=== PATIENT | male | born 1950 | race Caucasian/White ===

== ENCOUNTER 2017-12-30 13:51 | Observation (INO) | payer OTHER ==
--- NOTE | 2017-12-30 14:03 | PDOC ---
History of Present Illness - General Stated Complaint: CHEST PAINS History Source: Patient, Family () - History of Present Illness Initial Comments: The patient is a 67M with a PMH of HTN, HLD, and T2DM who presents with approx 45 days of intermittent, non-radiating, chest pressure with associated R arm numbness and tingling. The denies any other associated symptoms. The patient states that the pain will occur with activity or at rest, will last for approximately several hours at a time, nothing makes it better, and he has tried antacids and OTC pain medication. The patient denies history of VT, reports a cardiac cath at [facility] 3y ago that was 'normal'. Patient denies fevers/chills, SZYMANSKI, blurry vision, N/V/D/C, abdominal pain, or extremity swelling. The patient's Licensed Optical Dispenser is Dr. Wagner 12/30/17 14:40 Past History - Past Medical History Allergies/Adverse Reactions: Allergies Allergy/AdvReac Type Severity Reaction Status Date / Time No Known Drug Allergies Allergy Verified 12/30/17 14:12 Home Medications: Ambulatory Orders Aspirin Coated [Ecotrin -] 81 mg PO DAILY 03/19/13 Linagliptin/Metformin HCl [Jentadueto 2.5 mg-850 mg Tab] 1 each PO BID 12/30/17 Anemia: No Asthma: No Cancer: No Cardiac Disorders: No CVA: No COPD: No CHF: No Dementia: No Diabetes: Yes GI Disorders: No Disorders: No HTN: Yes Hypercholesterolemia: Yes Liver Disease: No Seizures: No Thyroid Disease: No - Surgical History Abdominal Surgery: Yes (suprapubic cath 01.21.12, THEN REMOVED) Appendectomy: No Cardiac Surgery: No Cholecystectomy: No Lung Surgery: No Neurologic Surgery: No Orthopedic Surgery: Yes (RIGHT TKR 2010) - Suicide/Smoking/Psychosocial Hx Smoking Status: No Smoking History: Never smoked Have you smoked in the past 12 months: No Number of Cigarettes Smoked Daily: 0 Hx Alcohol Use: No Drug/Substance Use Hx: No Substance Use Type: None Hx Substance Use Treatment: No Review of Systems - Review of Systems Able to Perform ROS?: Yes Comments:: GENERAL/CONSTITUTIONAL: No fever or chills. No weakness HEAD, EYES, EARS, NOSE AND THROAT: No change in vision. No ear pain or discharge. No sore throat CARDIOVASCULAR: per HPI RESPIRATORY: No SOB, cough, wheezing, or hemoptysis GASTROINTESTINAL: No nausea, vomiting, diarrhea or constipation GENITOURINARY: No dysuria, frequency, or change in urination MUSCULOSKELETAL: +Chronic back pain SKIN: No rash NEUROLOGIC: No headache, loss of consciousness HEMATOLOGIC/LYMPHATIC: No anemia, easy bleeding, or history of blood clots ALLERGIC/IMMUNOLOGIC: No hives or skin allergy 12/30/17 14:47 *Physical Exam - Vital Signs Vital Signs Temp Pulse Resp BP Pulse Ox 98.2 F 67 18 129/66 97 12/31/17 09:09 12/31/17 09:09 12/31/17 09:09 12/31/17 09:09 12/31/17 06:00 - Physical Exam Comments: GENERAL: Awake, alert, and fully oriented, in no acute distress HEAD: No signs of trauma, normocephalic, atraumatic EYES: PERRL, EOMI, sclera anicteric, conjunctiva clear ENT: Hearing grossly normal, nares patent, oropharynx clear without exudates. Moist mucosa NECK: Normal ROM, supple LUNGS: No distress, speaks full sentences, clear to auscultation bilaterally HEART: Regular rate and rhythm, normal S1 and S2, no murmurs appreciated, peripheral pulses normal and equal bilaterally ABDOMEN: Soft, protuberant, nontender, normoactive bowel sounds. No guarding, no rebound. No masses EXTREMITIES : Normal inspection, Normal range of motion, no edema. No clubbing or cyanosis NEUROLOGICAL: Cranial nerves II through XII grossly intact. Normal speech, no focal sensorimotor deficits SKIN: Warm, Dry, normal turgor, no rashes or lesions noted 12/30/17 14:48 ED Treatment Course - LABORATORY CBC & Chemistry Diagram: 12/30/17 15:00 12/30/17 15:00 Medical Decision Making - Medical Decision Making Patient is a 67M with a hx of HTN, HLD, and T2DM who presents with 45d of intermittent chest pain associated with R arm paresthesia ED Course CMP, CBC, Cardiac Profile ECG, CXR Consulted Cardiology to evaluate patient for need of Stress Test vs ECHO 12/30/17 14:48 No leukocytosis 12/30/17 15:22 Trop I neg ECG with sinus rhythm, rate 77, partial R bundle noted, UA not concerning for UTI 12/30/17 15:43 Per Cardiology, plan for admit to obs for r/o ACS 12/30/17 16:05 *DC/Admit/Observation/Transfer Diagnosis at time of Disposition: ACS (acute coronary syndrome) Diabetes mellitus Qualifiers: Diabetes mellitus type: type 2 Diabetes mellitus ferry terminal agent insulin use: without ferry terminal agent use Diabetes mellitus complication status: with unspecified complications Qualified Code(s): E11.8 - Type 2 diabetes mellitus with unspecified complications - Discharge Dispostion Disposition: HOME Condition at time of disposition: Good Decision to Admit order: Yes - Referrals - Patient Instructions - Post Discharge Activity
[2017-12-30 14:15] VITALS: BMI 36.8
--- NOTE | 2017-12-30 14:35 | PDOC ---
Attending Attestation - HPI HPI: Patient is a 67 year old male with PMHx of diabetes, hypertension, hyperlipidemia, who presents with pressure-like chest pain for 45 days. Patient reports intermittent left-sided pressure-like chest pain for 45 days. He states that it is not associated with any particular activity. He also reports associated right arm numbness and tingling. He was referred here by his manager assurance Dr. Wagner. He states that he takes Metformin, aspirin, and is not on any other blood thinners. He denies h/o VA. Had a cardiac catheterization 3 years ago at [facility] which came out normal. Denies any SOB, diaphoresis, blurry vision, headache, or abdominal pain. - Physicial Exam PE: GENERAL: Awake, alert, and fully oriented, in no acute distress HEAD: No signs of trauma EYES: PERRLA, EOMI, sclera anicteric, conjunctiva clear ENT: Auricles normal inspection, hearing grossly normal, nares patent, oropharynx clear without exudates. Moist mucosa NECK: Normal ROM, supple, no lymphadenopathy, JVD, or masses LUNGS: Breath sounds equal, clear to auscultation bilaterally. No wheezes, and no crackles HEART: Regular rate and rhythm, normal S1 and S2, no murmurs, rubs or gallops ABDOMEN: Soft, nontender, normoactive bowel sounds. No guarding, no rebound. No masses EXTREMITIES: Normal range of motion, no edema. No clubbing or cyanosis. No cords, erythema, or tenderness NEUROLOGICAL: Cranial nerves II through XII grossly intact. Normal speech, normal gait SKIN: Warm, Dry, normal turgor, no rashes or lesions noted. <Albania Alvarado - Last Filed: 12/30/17 15:14> - Resident Resident Name: Efrain Pleitez - ED Attending Attestation I have performed the following: I have examined & evaluated the patient, The case was reviewed & discussed with the resident, I agree w/resident's findings & plan, Exceptions are as noted - Medical Decision Making 12/30/17 14:56 A portion of this note was written by my scribe, under my supervision. Vital Signs Temp Pulse Resp BP Pulse Ox 98.5 F 80 18 131/76 96 12/30/17 14:12 12/30/17 14:12 12/30/17 14:12 12/30/17 14:12 12/30/17 14:12 67 year old male patient with pmh of HTN, DM, HLD presents with 45 days of chest pain. States not always exertional. Occasional SOB, and R arm tingling but not always associated with chest comfort. Last cath 3 years ago at [facility] reportedly negative. Pt initially resisted going to ER until pt's family convinced pt to call the manager assurance's office. Pt sees Dr. Wagner as an outpatient. Was unable to get an appointment until January 18, so came to ED. Pt's history is somewhat atypical for ACS, but the patient has significant risk factors. Dr. Byers consulted and she will see patient. Labs including troponin. Give aspirin. Dispo per cardiology. 12/30/17 16:00 CBC, BMP 12/30/17 15:00 12/30/17 15:00 CMP Sodium 140 mmol/L (136-145) 12/30/17 15:00 Potassium 3.9 mmol/L (3.5-5.1) 12/30/17 15:00 Chloride 107 mmol/L (98-107) 12/30/17 15:00 Carbon Dioxide 26 mmol/L (21-32) 12/30/17 15:00 Anion Gap 7 MMOL/L (8-16) L 12/30/17 15:00 BUN 13 mg/dL (7-18) 12/30/17 15:00 Creatinine 0.9 mg/dL (0.7-1.3) 12/30/17 15:00 Creat Clearance w eGFR > 60 (>60) 12/30/17 15:00 Random Glucose 111 mg/dL (74-106) H 12/30/17 15:00 Calcium 8.7 mg/dL (8.5-10.1) 12/30/17 15:00 Total Bilirubin 0.5 mg/dL (0.2-1.0) 12/30/17 15:00 AST 43 U/L (15-37) H D 12/30/17 15:00 ALT 58 U/L (12-78) D 12/30/17 15:00 Alkaline Phosphatase 78 U/L (45-117) 12/30/17 15:00 Creatine Kinase 153 IU/L (39-308) 12/30/17 15:00 Troponin I < 0.02 ng/ml (0.00-0.05) 12/30/17 15:00 Total Protein 7.5 g/dl (6.4-8.2) 12/30/17 15:00 Albumin 3.4 g/dl (3.4-5.0) 12/30/17 15:00 Troponin is negative. <Ashish Whitney - Last Filed: 12/30/17 16:00> Heart Score/ECG Review #1 ECG reviewed & interpreted by me at: 14:00 12/30/17 14:35 NSR 77 with 1st degree AV block, incomplete RBBB, no std/waleska, QTC 450 msec, t wave flat III <Ashish Whitney - Last Filed: 12/30/17 16:00>
[2017-12-30 15:20] LABS: HEMATOCRIT 41.7 % (35.4-49); HEMOGLOBIN 14.4 GM/dL (11.7-16.9); MCH 31.2 pg (25.7-33.7); MCHC 34.5 g/dl (32.0-35.9); MEAN CELL VOLUME 90.7 fl (80-96); PLATELET COUNT 137 K/MM3 (134-434); RDW 14.1 % (11.9-15.9); WHITE BLOOD COUNT 7.4 K/mm3 (4.0-10.0)
--- NOTE | 2017-12-30 15:22 | CON.CARD ---
Consult Consult Specialty:: Cardiology Referred by:: Chelo Reason for Consultation:: chest pain - History of Present Illness Chief Complaint: chset pain History of Present Illness: 67M h/o HTN, HLD, DM p/w 45 days of intermittent CP and right arm numbness. Not exertional. Sees Dr. Wagner in clinic, last seen 07/2017. h/o L/RHC nonobstructive CAD, echo unremarkable 04/2017. Has had ongoing complaints of chest pain. He says this time is different because it's worse, has almost constant but level of pain goes up and down under left armpit, also has sometimes L arm pain, right arm pain, right arm numbness. not exertional, has dyspnea on exertion that has been stable. Trop neg x 1, EKG unremarkable - History Source History Provided By: Patient Limitations to Obtaining History: No Limitations - Past Medical History Cardio/Vascular: Yes: HTN, Hyperlipdemia Endocrine: Yes: Diabetes Mellitus - Alcohol/Substance Use Hx Alcohol Use: No - Smoking History Smoking history: Never smoked Have you smoked in the past 12 months: No Aproximately how many cigarettes per day: 0 Home Medications - Allergies Allergies/Adverse Reactions: Allergies Allergy/AdvReac Type Severity Reaction Status Date / Time No Known Drug Allergies Allergy Verified 12/30/17 14:12 - Home Medications Home Medications: Ambulatory Orders Aspirin Coated [Ecotrin -] 81 mg PO DAILY 03/19/13 Review of Systems - Review of Systems Constitutional: reports: No Symptoms Eyes: reports: No Symptoms HENT: reports: No Symptoms Neck: reports: No Symptoms Cardiovascular: reports: Chest Pain Respiratory: reports: SOB on Exertion Gastrointestinal: reports: No Symptoms Genitourinary: reports: No Symptoms Musculoskeletal: reports: Extremity Pain Integumentary: reports: No Symptoms Neurological: reports: Numbness Endocrine: reports: No Symptoms Hematology/Lymphatic: reports: No Symptoms Psychiatric: reports: No Symptoms Vital Signs: Vital Signs Temperature 98.5 F 12/30/17 14:12 Pulse Rate 80 12/30/17 14:12 Respiratory Rate 18 12/30/17 14:12 Blood Pressure 131/76 12/30/17 14:12 O2 Sat by Pulse Oximetry (%) 96 12/30/17 14:12 Constitutional: Yes: Well Nourished, No Distress, Calm Eyes: Yes: Conjunctiva Clear, EOM Intact HENT: Yes: Atraumatic, Normocephalic Neck: Yes: Supple Respiratory: Yes: Regular, CTA Bilaterally Gastrointestinal: Yes: Normal Bowel Sounds, Soft Cardiovascular: Yes: Regular Rate and Rhythm Heart Sounds: Yes: S1, S2 Edema: No Peripheral Pulses: 2+ Left Doralis Pedis, 2+ Right Dorsalis Pedis Integumentary: Yes: WNL Neurological: Yes: Alert, Oriented ...Motor Strength: WNL Psychiatric: Yes: Alert, Oriented Assessment/Plan L/RHC [facility] 08/2015 wedge 15, PA , RA 10, CI 2.9, <30% RCA, mild dz D1 and OM1 , nl EF Mibi 09/2014 7:15 min, no STs, no ischemia, nl EF, nl LVE/TID Echo 04/2017 nl LV functino, EF 60-65%, nl LAP, RV nl size and function, ao root mildly dilated 3.9 cm carotids 09/2016 small nonobstructive plaque EKG sinus rhythm, first deg AVB, IRBBB Chest pain - unremarkable echo recently, cath unremarkable 2015 - not exertional, history not typical of angina - EKG unremarkable, trop neg x 1, less consistent with ACS - history more concerning for musculoskeletal chest pain - rule out RI, trend trop, EKG given risk factors DM - per primary team, not on meds HLD - was on statin prior, reportedly held for abnormal LFTs HTN - BP controlled here, not on meds
[2017-12-30 15:31] LABS: URINE APPEARANCE CLEAR; URINE BILIRUBIN NEGATIVE (<2.0 mg/dL); URINE COLOR YELLOW; URINE GLUCOSE (UA) NEGATIVE (NEGATIVE); URINE KETONE NEGATIVE (NEGATIVE); URINE LEUK ESTERASE NEGATIVE (NEGATIVE); URINE NITRITE NEGATIVE (NEGATIVE); URINE PROTEIN NEGATIVE (NEGATIVE); URINE UROBILINOGEN NEGATIVE mg/dL (0.2-1.0)
[2017-12-30 15:32] LABS: ALBUMIN 3.4 g/dl (3.4-5.0); ANION GAP 7 MMOL/L (8-16); BLOOD UREA NITROGEN 13 mg/dL (7-18); CALCIUM 8.7 mg/dL (8.5-10.1); CHLORIDE 107 mmol/L (98-107); CO2 26 mmol/L (21-32); CREATININE 0.9 mg/dL (0.7-1.3); GLUCOSE,RANDOM 111 mg/dL (74-106); POTASSIUM 3.9 mmol/L (3.5-5.1); SGOT/AST 43 U/L (15-37); SGPT/ALT 58 U/L (12-78); SODIUM 140 mmol/L (136-145)
[2017-12-30 15:36] LABS: ALK PHOS 78 U/L (45-117); BILIRUBIN,TOTAL 0.5 mg/dL (0.2-1.0); TOT PROT 7.5 g/dl (6.4-8.2)
--- NOTE | 2017-12-30 17:26 | HP ---
PCP: Nathan Nogueira CHIEF COMPLAINT: Chest pain HISTORY OF PRESENT ILLNESS: This is a 67 year old man who comes to the ED complaining of chest pain. He is a poor historian. He says he has been experiencing chest pain for the last 45 days. He says the pain has been worse for the last 2 weeks. The pain is located across his lower left chest, and sometimes he has pain in his right arm with it. It comes and goes with each episode lasting a minute to several minutes. It is not worse with activity or inspiration. He denies palpitations, SOB, dizziness, nausea. He sees Dr. Wagner in the office and says he had a normal cardiac catheterization several years ago. PAST MEDICAL HISTORY Hypertension Hyperlipidemia Type 2 diabetes mellitus PAST SURGICAL HISTORY Right total knee replacement Social History: Smoking: Former smoker Alcohol: None Drugs: Denies Recent Travel: No Family History: Unremarkable Allergies No Known Drug Allergies Allergy (Verified 12/30/17 14:12) Home Medications Medication Instructions Recorded Aspirin Coated [Ecotrin -] 81 mg PO DAILY 03/19/13 REVIEW OF SYSTEMS CONSTITUTIONAL: Absent: fever, chills, diaphoresis, generalized weakness, malaise, loss of appetite, weight change HEENT: Absent: rhinorrhea, nasal congestion, throat pain, throat swelling, difficulty swallowing, mouth swelling, ear pain, eye pain, visual changes CARDIOVASCULAR: Present: chest pain. Absent: syncope, palpitations, lightheadedness, peripheral edema RESPIRATORY: Absent: cough, shortness of breath, dyspnea with exertion, orthopnea, wheezing, stridor, hemoptysis GASTROINTESTINAL: Absent: abdominal pain, abdominal distension, nausea, vomiting , diarrhea, constipation, melena, hematochezia GENITOURINARY: Absent: dysuria, frequency, urgency, hesitancy, hematuria, flank pain MUSCULOSKELETAL: Absent: myalgia, arthralgia, joint swelling, back pain, neck pain SKIN: Absent: rash, itching, pallor HEMATOLOGIC/IMMUNOLOGIC: Absent: easy bleeding, easy bruising, lymphadenopathy, frequent infections ENDOCRINE: Absent: unexplained weight gain, unexplained weight loss, heat intolerance, cold intolerance NEUROLOGIC: Absent: headache, focal weakness,r paresthesias, dizziness, unsteady gait, seizure, mental status changes, bladder or bowel incontinence PSYCHIATRIC: Absent: anxiety, depression, suicidal or homicidal ideation, hallucinations. PHYSICAL EXAMINATION Vital Signs - 24 hr 12/30/17 12/30/17 12/30/17 14:12 16:31 16:33 Temperature 98.5 F Pulse Rate 80 Pulse Rate [ 69 Left] Respiratory 18 18 18 Rate Blood Pressure 131/76 Blood Pressure 115/73 [Left Arm] O2 Sat by Pulse 96 97 97 Oximetry (%) GENERAL: Awake, alert, and fully oriented, in no acute distress. HEAD: Normal with no signs of trauma. EYES: Pupils equal, round and reactive to light, extraocular movements intact, sclerae anicteric, conjunctivae clear. EARS, NOSE, THROAT: Ears normal, nares patent, oropharynx clear without exudates. Moist mucous membranes. NECK: Normal range of motion, supple without lymphadenopathy, JVD, or masses. LUNGS: Breath sounds equal, clear to auscultation bilaterally. No wheezes, and no crackles. No accessory muscle use. HEART: Regular rate and rhythm, normal S1 and S2 without murmur, rub or gallop. ABDOMEN: Obese, soft, nontender, not distended, normoactive bowel sounds, no guarding, no rebound, no masses. No hepatomegaly or splenomegaly. MUSCULOSKELETAL: Normal range of motion at all joints. No bony deformities or tenderness. No CVA tenderness. UPPER EXTREMITIES: 2+ pulses, warm, well-perfused. No cyanosis. No clubbing. No peripheral edema. LOWER EXTREMITIES: 2+ pulses, warm, well-perfused. No calf tenderness. No peripheral edema. NEUROLOGICAL: Cranial nerves II-XII intact. Normal speech. Gait not observed. PSYCHIATRIC: Cooperative. Good eye contact. Appropriate mood and affect. SKIN: Warm, dry, normal turgor, no rashes or lesions noted, normal capillary refill. Laboratory Results - last 24 hr 12/30/17 12/30/17 12/30/17 15:00 15:00 15:15 WBC 7.4 RBC 4.60 Hgb 14.4 Hct 41.7 MCV 90.7 MCH 31.2 MCHC 34.5 RDW 14.1 Plt Count 137 MPV 10.0 Sodium 140 Potassium 3.9 Chloride 107 Carbon Dioxide 26 Anion Gap 7 L BUN 13 Creatinine 0.9 Creat Clearance w eGFR > 60 Random Glucose 111 H Calcium 8.7 Total Bilirubin 0.5 AST 43 H D ALT 58 D Alkaline Phosphatase 78 Creatine Kinase 153 Creatine Kinase Index 0.9 CK-MB (CK-2) 1.41 Troponin I < 0.02 Total Protein 7.5 Albumin 3.4 Urine Color Yellow Urine Appearance Clear Urine pH 5.0 Ur Specific [place] 1.021 Urine Protein Negative Urine Glucose (UA) Negative Urine Ketones Negative Urine Blood Negative Urine Nitrite Negative Urine Bilirubin Negative Urine Urobilinogen Negative Ur Leukocyte Esterase Negative ASSESSMENT/PLAN: This is a 67 year old man with a history of HTN, hyperlipidemia, type 2 DM who presented to the ED with intermittent chest pain for the last 45 days. 1. Atypical chest pain - Observe on telemetry - Continue aspirin - Serial troponins - Cardiology consult appreciated 2. HTN - On no medications 3. Hyperlipidemia - On no medications - statin previously caused abnormal LFTs 4. Type 2 DM - Continue Linagliptin, Metformin - Fingersticks with Novolog sliding scale 5. Obesity with BMI 36.8 Visit type - Emergency Visit Emergency Visit: Yes Care time: The patient presented to the Emergency Department on the above date and was hospitalized for further evaluation of their emergent condition. - New Patient This patient is new to me today: Yes Date on this admission: 12/30/17 - Critical Care Critical Care patient: No Hospitalist Screening - Colonoscopy Questionnaire Colonoscopy Questionnaire: Colonoscopy Questionnaire - Patient: 50 - 75 years old and never had a screening colonoscopy: No History of colon or rectal polyps, or CA: No History of IBD, Crohn's disease or UC: No History of abdominal radiation therapy as a child: No - Relative: 1 with colon or rectal CA, or polyps at age 60 or younger: No Colon or rectal CA diagnosed at age 45 or younger: No Multiple relatives with colon or rectal CA: No - Outcome: Screening Result: Negative Screen
[2017-12-30] MEDS ORDERED: ACETAMINOPHEN 325 MG TABLET (FP) PO PRN (17:27)
[2017-12-30] MEDS ORDERED: PATIENT'S OWN MEDICATION (NON-FORMULARY) (Linagliptin/Metformin Hcl [Jentadueto 2.5 Mg-850 PO SCH (22:00)
[2017-12-30] MEDS: INSULIN SLIDING SCALE (NOVOLOG) 1 VIAL SQ SCH (23:32)
[2017-12-31] MEDS: INSULIN SLIDING SCALE (NOVOLOG) 1 VIAL SQ SCH (06:42)
[2017-12-31] MEDS ORDERED: sitaGLIPtin PHOSPHATE 100 MG TABLET (FP) PO SCH (07:00)
[2017-12-31 09:11] VITALS: BP 129/66; PULSE 67; TEMP 98.2
[2017-12-31] MEDS ORDERED: ASPIRIN COATED 81 MG TABLET.EC PO SCH (10:00)
--- NOTE | 2017-12-31 10:59 | PN ---
Progress Note (short form) - Note Progress Note: cc: chest pain s: mild stable chest pain on left side and arm pain right. palps, dizzy, lighteaded, sob. tele: no events, sinus o Current Medications Acetaminophen (Tylenol -) 650 mg PO Q4H PRN PRN Reason: PAIN Last Admin: 12/30/17 23:25 Dose: 650 mg Aspirin (Ecotrin -) 81 mg PO DAILY [facility] Insulin Aspart (Novolog Vial Sliding Scale -) 1 vial SQ ACHS [facility]; Protocol Last Admin: 12/31/17 06:42 Dose: Not Given Metformin HCl (Glucophage -) 850 mg PO BIDAC [facility] Last Admin: 12/31/17 06:41 Dose: 850 mg Sitagliptin Phosphate (Januvia -) 100 mg PO DAILY@0700 [facility] Last Admin: 12/31/17 06:41 Dose: 100 mg Vital Signs Period Temp Pulse Resp BP Sys/Shepherd Pulse Ox Last 24 Hr 97.4 F-98.5 F 64-80 16-18 109-136/55-79 96-98 Constitutional: Yes: Well Nourished, No Distress, Calm Eyes: Yes: Conjunctiva Clear, EOM Intact HENT: Yes: Atraumatic, Normocephalic Neck: Yes: Supple Respiratory: Yes: Regular, CTA Bilaterally Gastrointestinal: Yes: Normal Bowel Sounds, Soft Cardiovascular: Yes: Regular Rate and Rhythm Heart Sounds: Yes: S1, S2 Edema: No Peripheral Pulses: 2+ Left Doralis Pedis, 2+ Right Dorsalis Pedis Integumentary: Yes: WNL Neurological: Yes: Alert, Oriented ...Motor Strength: WNL Psychiatric: Yes: Alert, Oriented Assessment/Plan L/[facility] [place] 08/[place] wedge 15, PA 28/15, RA 10, CI 2.9, <30% RCA, mild dz D1 and OM1 , nl EF Mibi 09/2014 7:15 min, no STs, no ischemia, nl EF, nl LVE/TID Echo 04/2017 nl LV functino, EF 60-65%, nl LAP, RV nl size and function, ao root mildly dilated 3.9 cm carotids 09/2016 small nonobstructive plaque EKG sinus rhythm, first deg AVB, IRBBB Chest pain, atypical - unremarkable echo recently, cath unremarkable 2015 - not exertional, history not typical of angina - EKG unremarkable, trop neg x 2, less consistent with ACS - history more concerning for musculoskeletal chest pain - no further cardiac workup as inpatient DM - per primary team, not on meds HLD - was on statin prior, reportedly held for abnormal LFTs HTN - BP controlled here, not on meds
--- NOTE | 2017-12-31 13:58 | DS ---
Physical Examination Vital Signs: Vital Signs Temperature 98.2 F 12/31/17 09:09 Pulse Rate 67 12/31/17 09:09 Respiratory Rate 18 12/31/17 09:09 Blood Pressure 129/66 12/31/17 09:09 O2 Sat by Pulse Oximetry (%) 97 12/31/17 06:00 Findings/Remarks: General: NAD, A&Ox3 Lungs: CTA bilaterally Heart: RRR, S1S2 Abd: Soft, non-tender, non-distended. Normoactive bowel sounds Ext: Warm, well-perfused Labs: CBC, BMP 12/30/17 15:00 12/30/17 15:00 Discharge Summary Reason For Visit: DIABETES MELLITUS; ACUTE CORONARY SYNDROME Hospital Course: This is a 67 year old man with a history of HTN, hyperlipidemia, type 2 DM who presented to the ED with intermittent chest pain for the last 45 days. 1. Atypical chest pain - Recent ECHO unremarkable per cardiology - Trop x3 negative - EKG reviewed - Per cards, no further workup as an inpatient 2. HTN - Not on home mediations 3. Hyperlipidemia - Was on statin prior, but held due to abnormal LFTs 4. Type 2 DM - Continue Jentadueto Condition: Good - Instructions Diet, Activity, Other Instructions: Please return to the ED with new, persistent, or worsening symptoms. Please follow-up with providers as indicated. Referrals: Nathan Nogueira MD [Primary Care Provider] - 1 Week Ella Byers MD [Staff Physician] - (Please follow-up with cardiology within 1- 2 week for further outpatient management. ) Disposition: HOME - Home Medications Comprehensive Discharge Medication List: Ambulatory Orders Aspirin Coated [Ecotrin -] 81 mg PO DAILY 03/19/13 Linagliptin/Metformin HCl [Jentadueto 2.5 mg-850 mg Tab] 1 each PO BID 12/30/17 This patient is new to me today: Yes Date on this admission: 12/31/17 Emergency Visit: Yes ED Registration Date: 12/30/17 Care time: The patient presented to the Emergency Department on the above date and was hospitalized for further evaluation of their emergent condition. Critical Care patient: No - Discharge Referral Referred to [facility] Med P.C.: No
--- NOTE | 2018-01-01 22:03 | EKG ---
Test Reason : Blood Pressure : / mmHG Vent. Rate : 077 BPM Atrial Rate : 077 BPM P-R Int : 210 ms QRS Dur : 100 ms QT Int : 398 ms P-R-T Axes : 043 -16 023 degrees QTc Int : 450 ms SINUS RHYTHM WITH 1ST DEGREE A-V BLOCK POSSIBLE LEFT ATRIAL ENLARGEMENT INCOMPLETE RIGHT BUNDLE BRANCH BLOCK BORDERLINE ECG WHEN COMPARED WITH ECG OF 11-JAN-2012 14:15, NO SIGNIFICANT CHANGE WAS FOUND Confirmed by JOSSE ARNOLD MD ([id number]) on 01/01/2018 10:02:41 PM Referred By: Confirmed By:JOSSE ARNOLD MD
== END 2017-12-31 14:39 | disposition home or self-care (01) ==
LOC: JER 13:51 → JERBED 16:01 → J4W 23:01
PROVIDERS: ADMIT Internal Medicine; ATTEND Registered Nurse
DX: R07.89 Other chest pain (principal); I10 Essential (primary) hypertension; E78.5 Hyperlipidemia, unspecified; E11.8 Type 2 diabetes mellitus with unspecified complications; Z96.651 Presence of right artificial knee joint; Z79.84 Long term (current) use of oral hypoglycemic drugs; Z79.82 Long term (current) use of aspirin; Z87.891 Personal history of nicotine dependence; E66.9 Obesity, unspecified; Z68.36 Body mass index [BMI] 36.0-36.9, adult
CPT/HCPCS: 36415; 71045-TC-FY; 80053; 81003; 82550; 82553; 82962; 84484; 85027; 93005; 93010; 99285-25; G0378

== ENCOUNTER 2018-10-09 07:40 | Day surgery (SDC) | payer OTHER | END 2018-10-09 15:30 | disposition home or self-care (01) | LOC: JASU-SURG 07:40 ==

== ENCOUNTER 2019-01-13 21:59 | Emergency (ER) | payer OTHER ==
[2019-01-13 22:09] VITALS: TEMP 98.1; BMI 35.2
[2019-01-14] MEDS ORDERED: morphine CARPU-JECT 2 MG/1 ML DISP.SYRIN IVPUSH ONE (01:30)
[2019-01-14] MEDS ORDERED: CLINDAMYCIN 600MG PREMIX IVPB 600 MG/50 ML BAG IVPB ONE ×2 (01:30→01:43)
[2019-01-14] MEDS ORDERED: MORPHINE SULFATE 2 MG/ML VIAL ONE (01:43)
--- NOTE | 2019-01-14 01:56 | PDOC ---
Documentation entered by Marium Pastor SCRIBE, acting as scribe for Nora Hansen MD. Nora Hansen MD: This documentation has been prepared by the Dawit amor Adrianna, SCRIBE, under my direction and personally reviewed by me in its entirety. I confirm that the documentation accurately reflects all work, treatment, procedures, and medical decision making performed by me. History of Present Illness - General Chief Complaint: Bite Stated Complaint: RT FOOT PAIN/CAT BITE X 2 WKS Time Seen by Provider: 01/14/19 00:43 - History of Present Illness Initial Comments: The patient is a 67M with a PMH of HTN, HLD, and DM, who presents to the ED for evaluation of right heel pain for 2 weeks. Patient notes he was bitten by a stray cat and the distal medial aspect of his RLE 2 weeks ago, and developed right heel pain 2 days after. Patient notes he has been cleaning and disinfecting the bite himself, but the pain persists. He describes the pain as constant and sharp-shooting. Patient notes the pain is exacerbated with prolonged standing and walking. He denies any relief when taking meloxicam. Patient is unsure of when his last tetanus was. He endorses a headache while in the ED. Denies fever, chills, chest pain, SOB, nausea, vomit, diarrhea, constipation, urinary symptoms, or abdominal pain. Allergies: NKA, NKDA Surgical History: suprapubic cath insertion and removal, right TKR Social History: Denies EtOH, tobacco, or illicit drug use PCP: Dr. Nogueira Past History - Past Medical History Allergies/Adverse Reactions: Allergies Allergy/AdvReac Type Severity Reaction Status Date / Time No Known Drug Allergies Allergy Verified 01/13/19 22:09 Home Medications: Ambulatory Orders Linagliptin/Metformin HCl [Jentadueto 2.5 mg-850 mg Tab] 1 each PO BID 12/30/17 Cholesterol 1 gm MC DAILY 10/06/18 Icosapent Ethyl [Vascepa] 1 gm PO DAILY 10/06/18 Vitamin E 400 unit PO DAILY 10/06/18 Clindamycin [Cleocin -] 300 mg PO Q6HPO #28 capsule 01/14/19 Anemia: No Asthma: No Cancer: No Cardiac Disorders: No CVA: No COPD: No CHF: No Dementia: No Diabetes: Yes GI Disorders: No Disorders: No HTN: Yes Hypercholesterolemia: Yes Liver Disease: No Seizures: No Thyroid Disease: No - Surgical History Abdominal Surgery: Yes (suprapubic cath 01.21.12, THEN REMOVED) Appendectomy: No Cardiac Surgery: No Cholecystectomy: No Lung Surgery: No Neurologic Surgery: No Orthopedic Surgery: Yes (RIGHT TKR 2010) - Suicide/Smoking/Psychosocial Hx Smoking Status: No Smoking History: Never smoked Have you smoked in the past 12 months: No Number of Cigarettes Smoked Daily: 0 Hx Alcohol Use: No Drug/Substance Use Hx: No Substance Use Type: None Hx Substance Use Treatment: No Review of Systems - Review of Systems Comments:: GENERAL/CONSTITUTIONAL: No fever or chills. No weakness. HEAD, EYES, EARS, NOSE AND THROAT: No change in vision. No ear pain or discharge. No sore throat. CARDIOVASCULAR: No chest pain or shortness of breath. RESPIRATORY: No cough, wheezing, or hemoptysis. GASTROINTESTINAL: No nausea, vomiting, diarrhea or constipation. GENITOURINARY: No dysuria, frequency, or change in urination. MUSCULOSKELETAL: +Right heel pain. No joint or muscle swelling. No neck or back pain. SKIN: No rash NEUROLOGIC: +Headache. No vertigo, loss of consciousness, or change in strength/ sensation. ENDOCRINE: No increased thirst. No abnormal weight change. HEMATOLOGIC/LYMPHATIC: No anemia, easy bleeding, or history of blood clots. ALLERGIC/IMMUNOLOGIC: No hives or skin allergy. *Physical Exam - Vital Signs Last Vital Signs Temp Pulse Resp BP Pulse Ox 98.1 F 98 H 18 131/71 99 01/13/19 22:06 01/13/19 22:06 01/13/19 22:06 01/13/19 22:06 01/13/19 22:06 - Physical Exam Comments: CONSTITUTIONAL: Well-appearing; well-nourished; in no apparent distress HEAD: Normocephalic; atraumatic EYES: PERRL; EOM intact ENMT: External appears normal; normal oropharynx NECK: Supple; non-tender; no cervical lymphadenopathy CARD: Normal S1, S2; no murmurs, rubs, or gallops RESP: Normal chest excursion with respiration; breath sounds clear and equal bilaterally; no wheezes, rhonchi, or rales ABD: Soft, non-distended; non-tender; no palpable organomegaly, no palpable hernias EXT: Normal ROM in all four extremities; non-tender to palpation; distal pulses intact SKIN: +Minimally increased warmth of the medial distal RLE. Warm, dry, no rash NEURO: No focal neurological deficiencies. ED Treatment Course - LABORATORY CBC & Chemistry Diagram: 01/14/19 01:20 01/14/19 01:20 Medical Decision Making - Medical Decision Making 01/14/19 21:59 No need for rabies shot, as the cat has been seen in and around the neighborhood for weeks, tho it is a stray. Pt also was biten over 10 days ago and the cat has been spotted recently by neighbors. Others in the neighborhood have been bitten by said cat. Pt is stable for discahrge home with oral abx. *DC/Admit/Observation/Transfer Diagnosis at time of Disposition: Infection - Discharge Dispostion Disposition: HOME Condition at time of disposition: Stable - Prescriptions Prescriptions: Clindamycin [Cleocin -] 300 mg PO Q6HPO #28 capsule - Referrals Referrals: Nathan Nogueira MD [Primary Care Provider] - - Patient Instructions - Post Discharge Activity
[2019-01-14 02:07] LABS: BASO % 0.8 % (0-2.0); EOS % 2.7 % (0-4.5); HEMATOCRIT 43.6 % (35.4-49); HEMOGLOBIN 14.7 GM/dL (11.7-16.9); LYMPH % 40.7 % (8-40); MCH 31.4 pg (25.7-33.7); MCHC 33.7 g/dl (32.0-35.9); MEAN CELL VOLUME 93.2 fl (80-96); MEAN PLT VOLUME 10.4 fl (7.5-11.1); MONO % 7.1 % (3.8-10.2); NEUT % 48.7 % (42.8-82.8); PLATELET COUNT 154 K/MM3 (134-434); RBC 4.68 M/mm3 (4.00-5.60); RDW 14.1 % (11.9-15.9); WHITE BLOOD COUNT 8.4 K/mm3 (4.0-10.0)
[2019-01-14 02:29] LABS: ALBUMIN 3.5 g/dl (3.4-5.0); BILIRUBIN,TOTAL 0.5 mg/dL (0.2-1); BLOOD UREA NITROGEN 10.1 mg/dL (7-18); CALCIUM 8.8 mg/dL (8.5-10.1); CREATININE 1.2 mg/dL (0.55-1.3); POTASSIUM 4.3 mmol/L (3.5-5.1); TOT PROT 7.7 g/dl (6.4-8.2)
[2019-01-14 03:46] VITALS: BP 135/75; PULSE 93
== END 2019-01-14 03:43 | disposition home or self-care (01) ==
LOC: JER 21:59 → JERFT 21:59 → JER 01-14 03:43
PROC: 3E03329 Introduction of Other Anti-infective into Peripheral Vein, Percutaneous Approach (ICD-10-PCS; principal; 2019-01-13)
PROC: 3E033NZ Introduction of Analgesics, Hypnotics, Sedatives into Peripheral Vein, Percutaneous Approach (ICD-10-PCS; 2019-01-13)
DX: M79.671 Pain in right foot (principal); I10 Essential (primary) hypertension; E78.00 Pure hypercholesterolemia, unspecified; E11.9 Type 2 diabetes mellitus without complications; Z79.84 Long term (current) use of oral hypoglycemic drugs; W55.01XA Bitten by cat, initial encounter
CPT/HCPCS: 36415; 80053; 85025; 85651; 86140; 96365; 96375; 99283-25

== ENCOUNTER 2020-03-09 09:33 | Emergency (ER) | payer OTHER ==
--- OUTSIDE RECORDS SUMMARY | 2020-03-09 09:37 | XMS ---
:1950 [facility] Providers Name Role Phone Ricardo Guzman Unavailable Unavailable Lufrano, Ricardo Unavailable Unavailable Lufrano, Ricardo Unavailable Unavailable Lufrano, Ricardo Unavailable Unavailable Lufrano, Ricardo Unavailable Unavailable Lufrano, Ricardo Unavailable Unavailable Lufrano, Ricardo Unavailable Unavailable Re-disclosure Warning The records that you are about to access may contain information from federally- assisted alcohol or drug abuse programs. If such information is present, then the following federally mandated warning applies: This information has been disclosed to you from records protected by federal confidentiality rules (42 CFR part 2). The federal rules prohibit you from making any further disclosure of this information unless further disclosure is expressly permitted by the written consent of the person to whom it pertains or as otherwise permitted by 42 CFR part 2. A general authorization for the release of medical or other information is NOT sufficient for this purpose. The Federal rules restrict any use of the information to criminally investigate or prosecute any alcohol or drug abuse patient.The records that you are about to access may contain highly sensitive health information, the redisclosure of which is protected by Article 27-F of the [place] State Public Health law. If you continue you may haveaccess to information: Regarding HIV / AIDS; Provided by facilities licensed or operated by the [facility] Office of Mental Health; or Provided by the [facility] Office for People With Developmental Disabilities. If such information is present, then the following [facility] mandated warning applies: This information has been disclosed to you from confidential records which are protected by state law. State law prohibits you from making any further disclosure of this information without the specific written consent of the person to whom it pertains, or as otherwise permitted by law. Any unauthorized further disclosure in violation of state law may result in a fine or custodial sentence or both. A general authorization for the release of medical or other information is NOT sufficient authorization for further disclosure. Encounters Encounter Providers Location Date Indications Data Source(s ) Attender: Ricardo 02/11/2020 [facility] ([facility] [place] 12:00:00 AM EDT Medical, ) Office Attender: Ricardo Guzman 02/11/2020 12:00:00 AM EDT [facility] [place] [place] Attender: Ricardo Guzman 11/19/2019 12:00:00 AM EDT [facility] [place] [place] Attender: Ricardo Guzman 11/05/2019 12:00:00 AM EDT [facility] [place] [place] Attender: Ricardo Guzman 11/05/2019 12:00:00 AM EDT [facility] [place] [place] Medications Medication Brand Start Product Dose Route Administrative Pharmacy [facility] Indications Reaction Description Data Name Date Form Instructions Instructions Source(s) Metoclopram REGLAN 11/04/ TABLET 90 complet REGL AN [facility] (St kendra 10 MG :2019 ed [facility] Oral Tablet 6 12:00: Medica l, [Reglan] 00 AM PC) REGLAN:2071 EDT 66 Metoclopram REGLAN 11/04/ TABLET 90 complet REGL AN [facility] (St kendra 10 MG :2019 ed [facility] Oral Tablet 6 12:00: Medica l, [Reglan] 00 AM PC) REGLAN:2071 EDT 66 Metoclopram REGLAN 11/04/ TABLET 90 complet REGL AN [facility] (St kendra 10 MG :2019 ed [facility] Oral Tablet 6 12:00: Medica l, [Reglan] 00 AM PC) REGLAN:2071 EDT 66 Milk MILK 10/14/ complet MILK THISTLE ME DGEN ( thistle 2019 ed [facility] extract E:2835 12:00: Medical, MILK 79 00 AM PC) THISTLE:283 EDT 579 Milk MILK 10/14/ complet MILK THISTLE ME DGEN (St thistle THISTL 2020 ed [facility] extract E:2835 12:00: Medical, MILK 79 00 AM PC) THISTLE:283 EDT 579 Linagliptin JENTAD 10/14/ complet JENTAD UETO [facility] (St 2.5 MG / UETO:1 2019 ed [facility] Metformin 501071 12:00: Medica l, hydrochlori 00 AM PC) de 850 MG EDT Oral Tablet [Jentadueto ] JENTADUETO: [id number] Tamsulosin TAMSUL 10/14/ complet TAMSULO SIN [facility] (St hydrochlori OSIN:8 2019 ed [facility] de 0.4 MG 30765 12:00: Medical , Oral 00 AM PC) Capsule EDT TAMSULOSIN: 805171 Tamsulosin TAMSUL 10/14/ complet TAMSULO SIN [facility] (St hydrochlori OSIN:8 2019 ed [facility] de 0.4 MG 63536 12:00: Medical , Oral 00 AM PC) Capsule EDT TAMSULOSIN: 596562 Esomeprazol NEXIUM 10/14/ complet NEXIUM [facility] (St e 40 MG :05524 2019 ed [facility] Delayed 1 12:00: Medical, Release 00 AM PC) Oral EDT Capsule [Nexium] NEXIUM:6067 31 Esomeprazol NEXIUM 10/14/ complet NEXIUM [facility] (St e 40 MG :32547 2019 ed [facility] Delayed 1 12:00: Medical, Release 00 AM PC) Oral EDT Capsule [Nexium] NEXIUM:6067 31 Vitamin E VITAMI complet VITAMIN E [facility] (St 180 MG Oral N 2019 ed [facility] Capsule E:4121 12:00: Medical, VITAMIN 13 00 AM PC) E:084852 EDT VASCEPA: 10/14/ complet VASCEPA MED GEN (St 2020 ed [facility] 12:00: Medical, 00 AM PC) EDT Vitamin E VITAMI complet VITAMIN E [facility] (St 180 MG Oral N 2019 ed [facility] Capsule E:4121 12:00: Medical, VITAMIN 13 00 AM PC) E:406752 EDT VASCEPA: complet VASCEPA MED GEN (St 2019 ed [facility] 12:00: Medical, 00 AM PC) EDT Cholecalcif VITAMI 06/08/ complet VITAMI N D3 [facility] (St sudheer 1000 N 2019 ed [facility] UNT Oral D3:199 12:00: Medical , Tablet 362 00 AM PC) VITAMIN EDT D3:19921008 Cholecalcif VITAMI 10/14/ complet VITAMI N D3 [facility] (St sudheer 1000 N 2019 ed [facility] UNT Oral D3:199 12:00: Medical , Tablet 362 00 AM PC) VITAMIN EDT D3:19921008 Esomeprazol NEXIUM 10/14/ complet NEXIUM [facility] (St e 40 MG :13752 2019 ed [facility] Delayed 1 12:00: Medical, Release 00 AM PC) Oral EDT Capsule [Nexium] NEXIUM:6067 31 Tamsulosin TAMSUL 10/14/ complet TAMSULO SIN [facility] (St hydrochlori OSIN:8 2019 ed [facility] de 0.4 MG 85122 12:00: Medical , Oral 00 AM PC) Capsule EDT TAMSULOSIN: 621897 Cholecalcif VITAMI complet VITAMI N D3 [facility] (St sudheer 1000 N 2019 ed Jadas UNT Oral D3:199 12:00: Medical , Tablet 362 00 AM PC) VITAMIN EDT D3:19921008 VASCEPA: 10/14/ complet VASCEPA MED GEN (St 2020 ed [facility] 12:00: Medical, 00 AM PC) EDT Colestipol COLEST COLESTI BRI [facility] (St Hydrochlori IPOL:1 2019 ed [facility] de 1000 MG 218336 12:00: Medic al, Oral Tablet 00 AM PC) COLESTIPOL: EDT 5755943 Vitamin E VITAMI complet VITAMIN E [facility] (St 180 MG Oral N 2019 ed [facility] Capsule E:4121 12:00: Medical, VITAMIN 13 00 AM PC) E:127224 EDT Ascorbic ASCORB complet ASCORBIC [facility] (St Acid 1000 IC 2019 ed ACID [facility] MG Oral ACID:1 12:00: Medical, Tablet 31574 00 AM PC) ASCORBIC EDT ACID:320103 Milk MILK complet MILK THISTLE ME DGEN (St thistle THISTL 2019 ed [facility] extract E:2835 12:00: Medical, MILK 79 00 AM PC) THISTLE:283 EDT 579 Linagliptin JENTAD 06/08/ complet JENTAD UETO [facility] (St 2.5 MG / UETO:1 2019 ed [facility] Metformin 191880 12:00: Medica l, hydrochlori 00 AM PC) de 850 MG EDT Oral Tablet [Jentadueto ] [facility] [id number] Colestipol COLEST 10/14/ complet COLESTI BRI [facility] (St Hydrochlori IPOL:1 2019 ed [facility] de 1000 MG 172608 12:00: Medic al, Oral Tablet 00 AM PC) COLESTIPOL: EDT 3144422 Ascorbic ASCORB 10/14/ complet ASCORBIC [facility] (St Acid 1000 IC 2019 ed ACID [facility] MG Oral ACID:1 12:00: Medical, Tablet 22962 00 AM PC) ASCORBIC EDT ACID:146209 Ascorbic ASCORB 10/14/ complet ASCORBIC [facility] (St Acid 1000 IC 2020 ed ACID [facility] MG Oral ACID:1 12:00: Medical, Tablet 04085 00 AM PC) ASCORBIC EDT ACID:[id number] Colestipol COLEST 10/14/ complet COLESTI BRI [facility] (St Hydrochlori IPOL:1 2019 ed [facility] de 1000 MG 300146 12:00: Medic al, Oral Tablet 00 AM PC) COLESTIPOL: EDT 0459685 Linagliptin JENTAD 10/14/ complet JENTAD UETO [facility] (St 2.5 MG / UETO:1 2019 ed [facility] Metformin 635681 12:00: Medica l, hydrochlori 00 AM PC) de 850 MG EDT Oral Tablet [Jentadueto ] [facility] [id number] Insurance Providers Payer name Policy type Policy ID Covered Covered green party's Policy P adilia / Coverage green party ID relationship to Martin Inf ormation type martin MEDICAID [id number] SP [id number] [facility] DUAL [id number] SP [id number] COMPLETE AL MEDICARE [id number] PART B [facility] [id number] HEALTHCARE COMMUNITY PLAN AL MEDICAID OF [id number] [facility] MEDICARE [id number] PART B [place] MED[place] [id number] SP [id number] [facility] DUAL [id number] COMPLETE Problems, Conditions, and Diagnoses Code Display Name Description Problem Type Effective Data Sour ce(s) Dates K74.69 Other cirrhosis of OTHER CIRRHOSIS OF Problem 0 [facility] (St liver LIVER 12:00:00 AM [facility] [place]) K31.84 Gastroparesis GASTROPARESIS Problem 11/05/2019 [facility] ( St 12:00:00 AM [facility] [place]) K31.84 Gastroparesis GASTROPARESIS Problem 11/05/2019 [facility] ( St 12:00:00 AM [facility] [place]) K31.84 Gastroparesis GASTROPARESIS Problem 11/05/2019 [facility] ( St 12:00:00 AM [facility] [place]) K30 Functional FUNCTIONAL Problem 10/15/2019 [facility] (St dyspepsia DYSPEPSIA 12:00:00 AM [facility] [place]) K30 Functional FUNCTIONAL Problem 10/15/2019 [facility] (St dyspepsia DYSPEPSIA 12:00:00 AM [facility] [place]) K30 Functional FUNCTIONAL Problem 10/15/2019 [facility] (St dyspepsia DYSPEPSIA 12:00:00 AM [facility] [place]) Surgeries/Procedures Procedure Description Date Indications Data Source(s) Documentation of current 02/11/2020 [facility] ([facility] medications (procedure) 12:00:00 AM EDT dutch, ) Documentation of current 02/11/2020 [facility] ([facility] medications (procedure) 12:00:00 AM EDT dutch, ) BRIEF COMMUNICATION 02/11/2020 [facility] ( [facility] TECHNOLOGY-BASED SERVICE 12:00:00 AM [facility]) Documentation of current 11/19/2019 MED [facility] ([facility]j's medications (procedure) 12:00:00 AM EDT dutch ) Documentation of current 11/19/2019 MED [facility] ([facility]j's medications (procedure) 12:00:00 AM EDT dutch ) Documentation of current 11/19/2019 [facility]PATIENT VISIT 11/19/2019 [facility] EN ([facility] 10 MINUTES 12:00:00 AM EDT Medical, ) Documentation of current 11/19/2019 MED [facility] ([facility] medications (procedure) 12:00:00 AM EDT [facility], PC) ON LINE ASSESSMENT 11/19/2019 [facility] (S t [facility] 12:00:00 AM EDT Medical, ) Documentation of current 11/05/2019 [facility] ([facility] medications (procedure) 12:00:00 AM EDT [facility], PC) Documentation of current 11/05/2019 MED [facility] ([facility] medications (procedure) 12:00:00 AM EDT [facility], PC) Documentation of current 11/05/2019 MED [facility] ([facility] medications (procedure) 12:00:00 AM EDT [facility], PC) Documentation of current 11/05/2019 [facility] ([facility] medications (procedure) 12:00:00 AM EDT [facility], PC) Documentation of current 11/05/2019 [facility] ([facility] medications (procedure) 12:00:00 AM EDT [facility], PC) OFFICE OUTPATIENT VISIT 11/05/2019 [facility] EN ([facility] 15 MINUTES 12:00:00 AM ED Medical, PC) Documentation of current 11/05/2019 MED [facility] ([facility] medications (procedure) 12:00:00 AM EDT [facility], PC) Documentation of current 11/05/2019 MED [facility] ([facility] medications (procedure) 12:00:00 AM EDT dutch, PC) Documentation of current 11/05/2019 MED [facility] ([facility] medications (procedure) 12:00:00 AM EDT dutch, PC) Documentation of current 11/05/2019 MED [facility] ([facility] medications (procedure) 12:00:00 AM EDT [facility], PC) Documentation of current 11/05/2019 MED [facility] ([facility] medications (procedure) 12:00:00 AM EDT [facility], PC) OFFICE OUTPATIENT VISIT 11/05/2019 [facility] EN ([facility] 15 MINUTES 12:00:00 AM EDT Medical, PC) Documentation of current 11/05/2019 MED GEN ([facility] medications (procedure) 12:00:00 AM EDT [facility], PC) ON LINE ASSESSMENT 11/05/2019 [facility] (S [facility] 12:00:00 AM EDT Medical, PC) Documentation of current 10/15/2019 MED [facility] ([facility] medications (procedure) 12:00:00 AM EDT M edical, PC) Documentation of current 10/15/2019 MED [facility] ([facility] medications (procedure) 12:00:00 AM EDT M edical, PC) Documentation of current 10/15/2019 MED [facility] ([facility] medications (procedure) 12:00:00 AM EDT M edical, PC) Documentation of current 10/15/2019 MED [facility] ([facility] medications (procedure) 12:00:00 AM EDT M edical, PC) Documentation of current 10/15/2019 MED GEN ([facility] medications (procedure) 12:00:00 AM EDT M edical, PC) Documentation of current 10/15/2019 MED [facility] ([facility] medications (procedure) 12:00:00 AM EDT M edical, PC) Social History Code Duration Value Status Description Data Source(s ) Smoking 02/11/2020 Born in [facility] completed Born in [facility] EN ([facility] 12:00:00 AM EDT denied Tobacco, denied Tobacco, Medical, PC) etoh and etoh and illicit illicit drugs drugs Smoking 02/11/2020 Unknown if ever completed Unknown if ever MED[facility] EN ([facility] 12:00:00 AM EDT smoked smoked Medical, PC) Smoking 11/19/2019 [facility] MED[facility] EN ([facility] 12:00:00 AM EDT denied Tobacco, denied Tobacco, Medical, PC) etoh and etoh and illicit illicit drugs drugs Smoking 11/19/2019 Unknown if ever completed Unknown if ever MEDG EN ([facility] 12:00:00 AM EDT smoked smoked Medical, PC) Smoking 11/05/2019 [facility] EN ([facility] 12:00:00 AM EDT denied Tobacco, denied Tobacco, Medical, PC) etoh and etoh and illicit illicit drugs drugs Smoking 11/05/2019 Unknown if ever completed Unknown if ever MEDG EN ([facility] 12:00:00 AM EDT smoked smoked Medical, PC) Smoking 03/22/2019 Never Smoker completed Never Smoker [id number] ([facility] on 12:00:00 AM KETURAH Hidalgo [facility]) Vital Signs ID Date Data Source UNK Name Value Range Interpretation Code Description Data Source(s) Heart rate 73 /min 73 /min [facility] [place] [place] ) Inhaled oxygen 97 % 97 % [facility] ([facility], ) Body mass index 35 kg/m2 35 kg/m2 MED[facility] (S t (BMI) [Ratio] [facility], ) Diastolic blood 70 mm[Hg] 70 mm[Hg] [facility] (S t pressure [facility] , ) Systolic blood 130 mm[Hg] 130 mm[Hg] [facility] ([facility] , ) Body weight 230 lb 230 lb [facility] ([facility]) Body height 68 in 68 in [facility] ([facility] [place] , ) Heart rate 73 /min 73 /min [facility] ([facility] [place] , ) Inhaled oxygen 97 % 97 % [facility] ([facility], ) Body mass index 35 kg/m2 35 kg/m2 MED[facility] (S t (BMI) [Ratio] [facility], ) Diastolic blood 70 mm[Hg] 70 mm[Hg] [facility] (S t pressure [facility] , ) Systolic blood 130 mm[Hg] 130 mm[Hg] [facility] ([facility] , ) Body weight 230 lb 230 lb [facility] ([facility]) Body height 68 in 68 in [facility] ([facility]) Heart rate 73 /min 73 /min [facility] ([facility] [place] [facility] ) Inhaled oxygen 97 % 97 % [facility] ([facility], ) Body mass index 35 kg/m2 35 kg/m2 MED[facility] (S t (BMI) [Ratio] [facility], ) Diastolic blood 70 mm[Hg] 70 mm[Hg] [facility] (S t pressure [facility] , ) Systolic blood 130 mm[Hg] 130 mm[Hg] [facility] ([facility] , ) Body weight 230 lb 230 lb [facility] ([facility] , ) Body height 68 in 68 in [facility] ([facility])
--- NOTE | 2020-03-09 11:08 | TELE ---
HPI - General Reason For Visit: COVID TESTING Time Seen by Provider: 03/09/20 11:03 History Source: Patient Exam Limitations: Clinical Condition - History of Present Illness Timing/Duration: unsure Associated Symptoms: reports: denies symptoms 03/09/20 11:03 Patient with no significant past medical history presented to [facility] urgent care for Covid testing due to needing to have negative Covid test before having a routine colonoscopy. Patient scheduled for colonoscopy in 5 days. Denies fever, chills, cough, shortness of breath. Denies recent travel or sick contact. Denies any symptoms at this time Past History - Medical History Allergies/Adverse Reactions: Allergies Allergy/AdvReac Type Severity Reaction Status Date / Time No Known Drug Allergies Allergy Verified 01/13/19 22:09 Home Medications: Ambulatory Orders Linagliptin/Metformin HCl [Jentadueto 2.5 mg-850 mg Tab] 1 each PO BID 12/30/17 Cholesterol 1 gm MC DAILY 10/06/18 Icosapent Ethyl [Vascepa] 1 gm PO DAILY 10/06/18 Vitamin E 400 unit PO DAILY 10/06/18 Clindamycin [Cleocin -] 300 mg PO Q6HPO #28 capsule 01/14/19 Anemia: No Asthma: No Cancer: No Cardiac Disorders: No CVA: No COPD: No CHF: No Dementia: No Diabetes: Yes GI Disorders: No Disorders: No HTN: Yes Hypercholesterolemia: Yes Liver Disease: No Seizures: No Thyroid Disease: No - Surgical History Abdominal Surgery: Yes (suprapubic cath 9.14., THEN REMOVED) Appendectomy: No Cardiac Surgery: No Cholecystectomy: No Lung Surgery: No Neurologic Surgery: No Orthopedic Surgery: Yes (RIGHT TKR 2010) - Psycho-Social/Smoking History Smoking Status: No Smoking History: Never smoked Have you smoked in the past 12 months: No Number of Cigarettes Smoked Daily: 0 Review of Systems - Review of Systems Able to Perform ROS?: Yes Limited [place] proficient: No Constitutional: No: Chills, Fever, Malaise HEENTM: No: Symptoms Reported, See HPI, Eye Pain, Blurred Vision, Tearing, Recent change in vision, Double Vision, Cataracts, Ear Pain, Ocular Prothesis, Ear Discharge, Nose Pain, Nose Congestion, Tinnitus, Nose Bleeding, Hearing Loss, Throat Pain, Throat Swelling, Mouth Pain, Dental Problems, Difficulty Swallowing, Mouth Swelling, Other Respiratory: No: Symptoms reported, See HPI, Cough, Orthopnea, Shortness of Breath, SOB with Exertion, SOB at Rest, Stridor, Wheezing, Productive cough, Hemoptysis, Other Cardiac (ROS): No: Symptoms Reported, See HPI, Chest Pain, Edema, Irregular Heart Rate, Lightheadedness, Palpitations, Syncope, Chest Tightness, Other ABD/GI: No: Symptoms Reported, Nausea, Vomiting Integumentary: No: Symptoms Reported Neurological: No: Symptoms reported All Other Systems: Reviewed and Negative *Physical Exam - Physical Exam General Appearance: Yes: Nourished, Appropriately Dressed. No: Apparent Distress HEENT: positive: Normal ENT Inspection Respiratory/Chest: negative: Respiratory Distress, Accessory Muscle Use Musculoskeletal: positive: Normal Inspection Extremity: positive: Normal Inspection, Normal Range of Motion Integumentary: positive: Normal Color Neurologic: positive: Fully Oriented, Alert, Normal Mood/Affect, Normal Response - Medical Decision Making 03/09/20 11:06 Patient with no significant past medical history presented to [facility] for Covid testing due to needing to have negative Covid test before having a routine colonoscopy. Patient scheduled for colonoscopy in 5 days. Denies fever, chills, cough, shortness of breath. Denies recent travel or sick contact. Denies any symptoms at this time Patient asymptomatic at this time. Covid test ordered as per patient's request. Patient to go to [facility] today for Covid testing. Patient stable for discharge Discharge Diagnosis at time of Disposition: Encounter for preoperative screening laboratory testing for COVID-19 virus - Referrals - Patient Instructions - Discharge Disposition: HOME Condition at time of Disposition: Stable
== END 2020-03-09 11:09 | disposition home or self-care (01) ==
LOC: JVIRT 09:33
DX: Z11.59 Encounter for screening for other viral diseases (principal)
CPT/HCPCS: C9803; Q3014-GT; U0003

== ENCOUNTER 2020-07-09 10:23 | Day surgery (SDC) | payer OTHER ==
[2020-07-01 09:35] VITALS: BMI 32.5
[2020-07-09 12:23] VITALS: TEMP 97.6
[2020-07-09 12:57] VITALS: BP 120/67; PULSE 70
== END 2020-07-09 12:52 | disposition home or self-care (01) ==
LOC: FASU-ENDO 10:23
PROVIDERS: ATTEND Internal Medicine Gastroenterology
PROC: 0DBL8ZX Excision of Transverse Colon, Via Natural or Artificial Opening Endoscopic, Diagnostic (ICD-10-PCS; 2020-07-09)
PROC: 0DBM8ZX Excision of Descending Colon, Via Natural or Artificial Opening Endoscopic, Diagnostic (ICD-10-PCS; principal; 2020-07-09 11:45)
DX: Z09 Encounter for follow-up examination after completed treatment for conditions other than malignant neoplasm (principal); Z86.010 Personal history of colon polyps; D12.3 Benign neoplasm of transverse colon; D12.4 Benign neoplasm of descending colon; K64.1 Second degree hemorrhoids
CPT/HCPCS: 82962; 88305-TC

== ENCOUNTER 2020-08-13 10:25 | Day surgery (SDC) | payer OTHER ==
[2020-08-07 14:53] VITALS: BMI 33.5
[2020-08-13 11:06] VITALS: BP 123/69; PULSE 79; TEMP 98.4
== END 2020-08-13 11:00 | disposition home or self-care (01) ==
LOC: FASU-ENDO 10:25
PROVIDERS: ATTEND Internal Medicine Gastroenterology
DX: Z53.8 Procedure and treatment not carried out for other reasons (principal)
CPT/HCPCS: 82962

== ENCOUNTER 2020-09-03 10:30 | Day surgery (SDC) | payer OTHER ==
[2020-09-01 15:33] VITALS: BMI 33.5
[2020-09-03 12:11] VITALS: TEMP 98.1
[2020-09-03 12:27] VITALS: BP 117/64; PULSE 71
== END 2020-09-03 12:29 | disposition home or self-care (01) ==
LOC: FASU-ENDO 10:30
PROVIDERS: ATTEND Internal Medicine Gastroenterology
PROC: 0DB78ZX Excision of Stomach, Pylorus, Via Natural or Artificial Opening Endoscopic, Diagnostic (ICD-10-PCS; 2020-09-03)
PROC: 0DB48ZX Excision of Esophagogastric Junction, Via Natural or Artificial Opening Endoscopic, Diagnostic (ICD-10-PCS; 2020-09-03)
PROC: 0DB98ZX Excision of Duodenum, Via Natural or Artificial Opening Endoscopic, Diagnostic (ICD-10-PCS; principal; 2020-09-03 11:48)
DX: K25.9 Gastric ulcer, unspecified as acute or chronic, without hemorrhage or perforation (principal); K29.50 Unspecified chronic gastritis without bleeding; K22.8 Other specified diseases of esophagus; K31.89 Other diseases of stomach and duodenum
CPT/HCPCS: 88305-TC; 88342-TC

== ENCOUNTER 2022-03-24 10:50 | Day surgery (SDC) | payer MEDICARE, OTHER ==
[2022-03-23 13:19] VITALS: BMI 35.2
[2022-03-24 11:33] VITALS: RESP 18
[2022-03-24 13:36] VITALS: TEMP 98
[2022-03-24 13:38] VITALS: BP 136/75; PULSE 85
== END 2022-03-24 13:50 | disposition home or self-care (01) ==
LOC: FASU-ENDO 10:50
PROVIDERS: ATTEND Internal Medicine Gastroenterology
PROC: 0DB98ZX Excision of Duodenum, Via Natural or Artificial Opening Endoscopic, Diagnostic (ICD-10-PCS; principal; 2022-03-24 12:58)
DX: I85.00 Esophageal varices without bleeding (principal); K25.9 Gastric ulcer, unspecified as acute or chronic, without hemorrhage or perforation; K26.9 Duodenal ulcer, unspecified as acute or chronic, without hemorrhage or perforation; K31.9 Disease of stomach and duodenum, unspecified; K31.89 Other diseases of stomach and duodenum; R10.13 Epigastric pain
CPT/HCPCS: 82962; 88305-TC

== ENCOUNTER 2022-06-16 09:49 | Day surgery (SDC) | payer MEDICARE, OTHER ==
[2022-06-09 15:16] VITALS: BMI 35.2
[2022-06-16] MEDS ORDERED: PROPOFOL 120 ML ONE (10:04)
[2022-06-16 11:17] VITALS: TEMP 98.4
[2022-06-16 11:35] VITALS: BP 109/65; PULSE 83; RESP 16
== END 2022-06-16 12:04 | disposition home or self-care (01) ==
LOC: FASU-ENDO 09:49
PROVIDERS: ATTEND Internal Medicine Gastroenterology
PROC: 0DB68ZX Excision of Stomach, Via Natural or Artificial Opening Endoscopic, Diagnostic (ICD-10-PCS; principal; 2022-06-16 11:02)
DX: K29.50 Unspecified chronic gastritis without bleeding (principal); I85.00 Esophageal varices without bleeding; R10.13 Epigastric pain; Z87.11 Personal history of peptic ulcer disease
CPT/HCPCS: 82962; 88305-TC; 88342-TC

== ENCOUNTER 2024-02-22 11:17 | Day surgery (SDC) | payer MEDICARE, OTHER ==
[2024-02-20 15:56] VITALS: BMI 33.8
[2024-02-22 11:35] VITALS: RESP 16
[2024-02-22] MEDS ORDERED: PROPOFOL 120 ML ONE (11:52)
[2024-02-22 12:39] VITALS: PULSE 63; TEMP 97.1
[2024-02-22 12:45] VITALS: BP 103/57
== END 2024-02-22 12:55 | disposition home or self-care (01) ==
LOC: FASU-ENDO 11:17
PROVIDERS: ATTEND Internal Medicine Gastroenterology
PROC: 0DB68ZX Excision of Stomach, Via Natural or Artificial Opening Endoscopic, Diagnostic (ICD-10-PCS; 2024-02-22)
PROC: 0DB48ZX Excision of Esophagogastric Junction, Via Natural or Artificial Opening Endoscopic, Diagnostic (ICD-10-PCS; 2024-02-22)
PROC: 0DB98ZX Excision of Duodenum, Via Natural or Artificial Opening Endoscopic, Diagnostic (ICD-10-PCS; principal; 2024-02-22 12:09)
DX: K29.50 Unspecified chronic gastritis without bleeding (principal); I85.00 Esophageal varices without bleeding
CPT/HCPCS: 88305-TC; 88342-TC